=== PATIENT | female | born 1990 | race African-American/Black ===

== ENCOUNTER → 2024-01-19 | Outpatient (REF) | payer OTHER ==
[2024-01-19 22:36] LABS: Trichomonas vaginalis (AMP) POSITIVE (NEGATIVE)
[2024-01-19 23:12] LABS: GC DNA AMPLIFICATION NEGATIVE (NEGATIVE)
== END ==
LOC: M WUC 21:15
PROVIDERS: ATTEND Nurse Practitioner Family
DX: R30.0 Dysuria (principal); N89.8 Other specified noninflammatory disorders of vagina; Z11.3 Encounter for screening for infections with a predominantly sexual mode of transmission

== ENCOUNTER 2024-04-01 10:20 | Emergency (ER) | payer OTHER ==
[~2024-04-01] VITALS: Ht 167.6 cm; Wt 53.3 kg
[2024-04-01 12:21] LABS: BASO % 0.7 % (0.0-1.0); HEMATOCRIT 40.7 % (36.0-47.0); HEMOGLOBIN 13.1 g/dl (12.0-15.5); LYMPH # 1.9 10^3/uL (1.5-5.0); LYMPH % 44.4 % (24.0-44.0); MEAN CORPUSCULAR HGB CONC 32.2 g/dl (32.0-36.5); MEAN CORPUSCULAR VOLUME 99.3 fl (80.0-96.0); MONO # 0.4 10^3/uL (0.0-0.8); MONO % 8.3 % (2.0-8.0); NEUTROPHILS # 1.9 10^3/uL (1.5-8.5); NEUTROPHILS % 45.4 % (36.0-66.0); PLATELET COUNT, AUTOMATED 241 10^3/uL (150-450); WHITE BLOOD COUNT 4.2 10^3/uL (4.0-10.0)
[2024-04-01 12:55] LABS: CK-MB VALUE MASS < 1.0 NG/ML (<3.6)
[2024-04-01 12:57] LABS: ALBUMIN 3.9 G/DL (3.2-5.2); ALKALINE PHOSPHATASE 63 U/L (46-116); ALT/SGPT 19 U/L (7.0-40); AST/SGOT 15 U/L (<34); BILIRUBIN,DIRECT 0.3 MG/DL (<0.4); BILIRUBIN,TOTAL 1.3 MG/DL (0.3-1.2); BLOOD UREA NITROGEN 14 MG/DL (9-23); CALCIUM LEVEL 9.3 MG/DL (8.5-10.1); CARBON DIOXIDE LEVEL 28 MMOL/L (20-31); CHLORIDE LEVEL 108 MMOL/L (98-107); CREATININE FOR GFR 0.83 MG/DL (0.55-1.30); GLOMERULAR FILTRATION RATE > 60.0 (>60); GLUCOSE, FASTING 84 MG/DL (60-100); POTASSIUM SERUM 4.3 MMOL/L (3.5-5.1); SODIUM LEVEL 141 MMOL/L (136-145); TOTAL PROTEIN 7.3 G/DL (5.7-8.2)
[2024-04-01 12:59] LABS: THYROID STIMULATING HORMONE 2.939 uIU/ML (0.55-4.78)
[2024-04-01 13:07] LABS: HCG, SERUM QUALITATIVE NEGATIVE (NEGATIVE)
[2024-04-01 13:08] LABS: CPK CREATINE PHOSPHOKINASE 110 U/L (34-145)
[2024-04-01] MEDS: NS 1,000 ML IV ONE (13:16)
[2024-04-01 13:55] LABS: CK-MB VALUE MASS < 1.0 NG/ML (<3.6)
[2024-04-01 13:58] LABS: CPK CREATINE PHOSPHOKINASE 100 U/L (34-145)
[2024-04-01 14:09] VITALS: BP 106/71; O2SAT 100
[2024-04-01 15:51] VITALS: TEMP 98.9
== END 2024-04-01 16:09 | disposition home or self-care (01) ==
LOC: M ED 10:20
DX: R07.89 Other chest pain (principal)